=== PATIENT | female | born 1945 | race Caucasian/White ===

== ENCOUNTER 2016-11-06 19:31 | Emergency (ER) | payer MEDICARE ==
[~2016-11-06] VITALS: Ht 165.1 cm; Wt 58.0 kg
[~2016-11-06 19:31] MED LIST: ABIL5TAB6 PO; ALBU6.7H INH; LORT5TAB PO; REST30CA PO; SERT100 PO; SYMB80AE INH
[2016-11-06 19:33] VITALS: BP 138/60; PULSE 87; RESP 18; TEMP 98.5; O2SAT 96
[2016-11-06] MEDS ORDERED: GLUCAGON 1 MG/ML VIAL IV PUSH ONE (19:45)
--- NOTE | 2016-11-06 19:50 | PD ---
HPI Chief Complaint: Foreign Body Time Seen by Provider: 19:44 Travel History International Travel<30 days: No Contact w/Intl Traveler<30days: No Traveled to known affect area: No History of Present Illness HPI 71-year-old female with history of esophageal strictures status post dilation by Dr. English last month, presents to the ER today for feeling a sensation of food being stuck in her esophagus again. She states that she was eating steak. She has not been able to swallow any food or even water. She states that she has been trying to vomit it up but is unsuccessful. She has no problems breathing. She denies any other issues. Modifying Factors: None Associated Signs & Symptoms: Foreign body in esophagus Risk Factors: History of esophageal strictures PFSH Past Medical History Arthritis: Yes Asthma: Yes Autoimmune Disease: No Blood Disorders: No Anxiety: No Depression: Yes Cancer: No Cardiovascular Problems: No COPD: Yes Diabetes: No Diminished Hearing: No Endocrine: No Fibromyalgia: Yes Gastrointestinal Disorders: Yes GERD: Yes Genitourinary: No Hepatitis: No Hiatal Hernia: Yes Immune Disorder: No Musculoskeletal: Yes Neurologic: No Psychiatric: Yes Reproductive: No Respiratory: Yes (ASTHMA, COPD) Immunizations Current: Yes Sleep Apnea: No Thyroid Disease: No Menopausal: Yes : 1 Para: 1 Miscarriage: 0 : 0 Tubal Ligation: Yes Past Surgical History Abdominal Surgery: Yes (APPENDECTOMY) Appendectomy: Yes Cardiac Surgery: No Ear Surgery: No Endocrine Surgery: Yes (ENDOSCOPY) Eye Surgery: No Genitourinary Surgery: No Gynecologic Surgery: Yes (TUBAL LIGATION) Hysterectomy: Yes Oral Surgery: Yes (ESOPHAGEAL DILITATION) Pacemaker: No Thoracic Surgery: No Other Surgery: Yes Social History Alcohol Use: No Tobacco Use: No Substance Use: No Allergies-Medications (Allergen,Severity, Reaction): Coded Allergies: Penicillin (Verified Allergy, Severe, 11/06/16) Celebrex (Verified Allergy, Intermediate, GI BLEED, 11/06/16) Reported Meds & Prescriptions Reported Meds & Active Scripts Active Reported Cymbalta DR (Duloxetine HCl) 60 Mg Capdr 60 Mg PO DAILY Review of Systems Except as stated in HPI: all other systems reviewed are Neg Physical Exam Narrative GENERAL: Well-developed elderly white female patient currently in mild distress. Awake and oriented 3. No drooling. SKIN: Focused skin assessment warm/dry. HEAD: Atraumatic. Normocephalic. EYES: Pupils equal and round. No scleral icterus. No injection or drainage. ENT: No nasal bleeding or discharge. Mucous membranes pink and moist. NECK: Trachea midline. No JVD. CARDIOVASCULAR: Regular rate and rhythm. No murmur appreciated. RESPIRATORY: No accessory muscle use. Clear to auscultation. Breath sounds equal bilaterally. GASTROINTESTINAL: Abdomen soft, non-tender, nondistended. Hepatic and splenic margins not palpable. MUSCULOSKELETAL: No obvious deformities. No clubbing. No cyanosis. No edema. NEUROLOGICAL: Awake and alert. No obvious cranial nerve deficits. Motor grossly within normal limits. Normal speech. PSYCHIATRIC: Appropriate mood and affect; insight and judgment normal. Data Data Last Documented VS Vital Signs Date Time Temp Pulse Resp B/P Pulse Ox O2 Delivery O2 Flow Rate FiO2 11/06/16 19:33 98.5 87 18 138/60 96 Room Air Orders Glucagon Inj (Glucagon Inj) (11/06/16 19:45) [facility] Medical Decision Making Medical Screen Exam Complete: Yes Emergency Medical Condition: Yes Medical Record Reviewed: Yes Differential Diagnosis Esophageal foreign body Narrative Course Patient was given glucagon IV and given soda to drink. On reevaluation at 8:20 PM, she states that she feels like it has gone down and she feels better and is able to swallow without issues. At this point, my plan would be to release her with follow-up to her GI doctor. Return for any worsening in symptoms as necessary. She should avoid eating large pieces of meat and for now. Return as needed for worsening in symptoms. The plan was discussed with patient and she states understanding. Diagnosis Primary Impression: Esophageal foreign body Referrals: Astrid English MD Disposition: DISCHARGE HOME Condition: Stable Lisa Olea MD November 06, 2016 19:50
[2016-11-06] MEDS ORDERED: CYMB60CA PO (20:07)
[2016-11-06] MEDS ORDERED: TEMA30CA PO (20:21)
[2016-11-06] MEDS ORDERED: ALBU6.7H INH (20:21)
[2016-11-06] MEDS ORDERED: SYMB80AE INH (20:21)
[2016-11-06] MEDS ORDERED: ARIP1TAB5 PO (20:21)
[2016-11-06] MEDS ORDERED: HYDR-3533 PO (20:21)
== END 2016-11-06 21:20 | disposition home or self-care (01) ==
LOC: NEPD 19:31
DX: T18.128A Food in esophagus causing other injury, initial encounter (principal); M19.90 Unspecified osteoarthritis, unspecified site; J45.909 Unspecified asthma, uncomplicated; F32.9 Major depressive disorder, single episode, unspecified; J44.9 Chronic obstructive pulmonary disease, unspecified; M79.7 Fibromyalgia; X58.XXXA Exposure to other specified factors, initial encounter; Y93.9 Activity, unspecified; Y92.9 Unspecified place or not applicable; Y99.9 Unspecified external cause status
CPT/HCPCS: 96374; 99283; J1610